=== PATIENT | female | born 1980 | race Caucasian/White ===

== ENCOUNTER 2019-04-04 03:56 | Emergency (ER) | payer BC, OTHER ==
[2019-04-04 04:04] VITALS: BP 127/77; PULSE 100; RESP 20; TEMP 98.6
--- NOTE | 2019-04-04 04:33 | ED ---
Abdominal Pain HPI - General Chief Complaint: Abdominal Pain Stated Complaint: constipation Time Seen by Provider: 04/04/19 04:32 Source: patient Mode of arrival: ambulatory Limitations: no limitations - History of Present Illness Initial Comments: Lizbeth is a pleasant 38-year-old female presents the emergency department today requesting an enema. Patient states that she ate too much dairy including cheese and became somewhat constipated. Patient states she then took some stool softeners and laxatives. Patient reports she is able to past watery stools but feels that there is a stool ball in her rectum. Patient states that she feels she needs an enema. Patient has not tried any manual disimpaction. She has not tried an enema at home. She states she didn't know enemas were available [id number] about she had to come the hospital for it. She reports she's been eating and drinking well, she has no other complaints, she has mild crampy abdominal pain prior to having bowel movements but is asymptomatic at this time. - Related Data Home Medications Medication Instructions Recorded Confirmed Glycerin/Propylene Glycol 1 drop LEFT EYE DAILY PRN 03/21/16 03/21/16 [Artificial Tears Drops] medroxyPROGESTERone [Depo-Provera] 150 mg IM Q90D 03/21/16 03/21/16 Previous Rx's Medication Instructions Recorded Tobramycin 0.3% Ophth Soln [Tobrex 1 - 2 drop BOTH EYES QID 7 Days ml 03/21/16 0.3% Ophth Soln] Allergies Allergy/AdvReac Type Severity Reaction Status Date / Time No Known Allergies Allergy Verified 04/04/19 04:03 Review of Systems ROS Statement: Those systems with pertinent positive or pertinent negative responses have been documented in the HPI. ROS Other: All systems not noted in ROS Statement are negative. Past Medical History Past Medical History: No Reported History History of Any Multi-Drug Resistant Organisms: None Reported Past Surgical History: Section Past Psychological History: No Psychological Hx Reported Smoking Status: Current every day smoker Past Alcohol Use History: Occasional Past Drug Use History: None Reported General Exam - General Exam Comments Initial Comments: Physical Exam GENERAL: Patient is well-developed and well-nourished. Patient is nontoxic and well-hydrated and is in no distress. HENT: Normocephalic, Atraumatic. EYES: PERRL, EOMI PULMONARY: Unlabored respirations. CARDIOVASCULAR: RRR ABDOMEN: Soft and nontender with normal bowel sounds. SKIN: Skin is clear with no lesions or rashes and otherwise unremarkable. : Deferred NEUROLOGIC: Patient is alert and oriented x3. Moving all extremities spontaneously MUSCULOSKELETAL: Normal extremities with adequate strength and full range of motion. No lower extremity swelling or edema. No calf tenderness. PSYCHIATRIC: Normal psychiatric evaluation. Limitations: no limitations Course Vital Signs 04/04/19 04:00 Temperature 98.6 F Pulse Rate 100 Respiratory 20 Rate Blood Pressure 127/77 O2 Sat by Pulse 96 Oximetry Medical Decision Making - Medical Decision Making Patient was seen and evaluated history is obtained from the patient is a 38-year-old female who reports feeling like there is firm stool that she's been unable to pass and would like to try an enema. Patient has no physical or mental limitations that would prevent her from doing her own enema she was simply not aware that she can buy one at the store. Patient will be given a fleets enema which she would like to take him feel. Patient states she be more comfortable using the restroom home anyways. All questions pertaining care were answered return parameters were discussed patient was discharged home in stable condition Disposition Clinical Impression: Constipation Disposition: HOME SELF-CARE Condition: Stable Instructions (If sedation given, give patient instructions): Fleet Enema (ED) Is patient prescribed a controlled substance at d/c from ED?: No Referrals: Rachele Jones MD [Primary Care Provider] - 1-2 days
[2019-04-04] MEDS ORDERED: NA PHOS,M-B/NA PHOS,DI-BA 133 ML ENEMA RECTAL STA (04:44)
== END 2019-04-04 04:55 | disposition home or self-care (01) ==
LOC: EC 03:56
DX: K59.00 Constipation, unspecified (principal); F17.200 Nicotine dependence, unspecified, uncomplicated; Z79.899 Other long term (current) drug therapy
CPT/HCPCS: 99283

== ENCOUNTER 2019-08-08 10:13 | Emergency (ER) | payer BC, OTHER ==
--- NOTE | 2019-08-08 10:36 | ED ---
General Adult HPI - General Chief complaint: Back Pain/Injury Stated complaint: sciatica pain Time Seen by Provider: 08/08/19 10:21 Source: patient, RN notes reviewed, old records reviewed Mode of arrival: ambulatory Limitations: no limitations - History of Present Illness Initial comments: 39-year-old female patient presented to ED for chief complaint of left paralumbar back pain for the last 2-3 weeks. Patient reports that the pain initially started at work where she moves around. Patient reports that the pain is in her left paralumbar region radiating down her left lateral leg. Denies any red flag symptoms. Ambulatory without difficulty. Patient does report that she saw her primary care doctor for this complaint last week which is initiated on muscle relaxers and steroids. Denies any significant improvement of symptoms. Denies any other complaints at this time. Denies any chance of being due to Depo-Provera shot as well as not being sexually active. Systemic: Pt denies fatigue, fever/chills, rash. Pt denies weakness, night sweats, weight loss. Neuro: Pt denies headache, visual disturbances, syncope or pre-syncope. HEENT: Pt denies ocular discharge or irritation, otalgia, rhinorrhea, pharyngitis or notable lymphadenopathy. Cardiopulmonary: Pt denies chest pain, SOB, heart palpitations, dyspnea on exertion. Abdominal/GI: Pt denies abdominal pain, n/v/d. : Pt denies dysuria, burning w/ urination, frequency/urgency. Denies new onset urinary or bowel incontinence. MSK: Pt denies loss of strength or function in extremities. Neuro: Pt denies new onset weakness, paresthesias. - Related Data Home Medications Medication Instructions Recorded Confirmed Glycerin/Propylene Glycol 1 drop LEFT EYE DAILY PRN 03/21/16 03/21/16 [Artificial Tears Drops] medroxyPROGESTERone [Depo-Provera] 150 mg IM Q90D 03/21/16 03/21/16 Previous Rx's Medication Instructions Recorded Tobramycin 0.3% Ophth Soln [Tobrex 1 - 2 drop BOTH EYES QID 7 Days ml 03/21/16 0.3% Ophth Soln] Oseltamivir [Tamiflu] 75 mg PO Q12HR 5 Days cap 08/08/19 Allergies Allergy/AdvReac Type Severity Reaction Status Date / Time No Known Allergies Allergy Verified 08/08/19 10:18 Review of Systems ROS Statement: Those systems with pertinent positive or pertinent negative responses have been documented in the HPI. ROS Other: All systems not noted in ROS Statement are negative. Past Medical History Past Medical History: No Reported History History of Any Multi-Drug Resistant Organisms: None Reported Past Surgical History: Section Past Psychological History: No Psychological Hx Reported Smoking Status: Current every day smoker Past Alcohol Use History: Occasional Past Drug Use History: None Reported General Exam - General Exam Comments Initial Comments: Constitutional: NAD, AOX3, Pt has pleasant affect. HEENT: NC/AT, trachea midline, neck supple, no lymphadenopathy. Posterior pharynx non erythematous, without exudates. External ears appear normal, without discharge. Mucous membranes moist. Eyes PERRLA, EOM intact. There is no scleral icterus. No pallor noted. Cardiopulmonary: RRR, no murmurs, rubs or gallops, no JVD noted. Lungs CTAB in anterior and posterior rod. No peripheral edema. Abdominal exam: Abdomen soft and non-distended. Abdomen non-tender to palpation in all 4 quadrants. Bowel sounds active in LLQ. No hepatosplenomegaly. No ecchymosis Neuro: CN II-XII grossly intact. No nuchal rigidity. No raccon eyes, no ramirez sign, no hemotympanum. No cervical spinal tenderness. MSK: Left paralumbar region mildly tender to palpation. Heel to toe walking intact. Straight leg raise is negative. Ambulatory without difficulty. 5 strength psoas and quadriceps muscles. No posterior calf tenderness bilaterally, homans sign negative bilaterally. Posterior tibialis and radial pulse +2 bilaterally. Sensation intact in upper and lower extremities. Full active ROM in upper and lower extremities, 5/5 stregnth. Limitations: no limitations Course Vital Signs 08/08/19 08/08/19 08/08/19 10:16 10:18 11:18 Temperature 98.1 F 100.9 F H Pulse Rate 108 H 87 Respiratory 18 20 20 Rate Blood Pressure 97/65 123/83 O2 Sat by Pulse 98 99 Oximetry Medical Decision Making - Medical Decision Making 39-year-old female patient presented to ED for chief complaint of left paralumbar back pain for the last 2-3 weeks. Patient reports that the pain initially started at work where she moves around. Patient reports that the pain is in her left paralumbar region radiating down her left lateral leg. Denies any red flag symptoms. Ambulatory without difficulty. Patient does report that she saw her primary care doctor for this complaint last week which is initiated on muscle relaxers and steroids. Denies any significant improvement of symptoms. Denies any other complaints at this time. Denies any chance of being due to Depo-Provera shot as well as not being sexually active. Phy sical exam displayed: Left paralumbar region mildly tender to palpation. Heel to toe walking intact. Straight leg raise is negative. Ambulatory without difficulty. 5 strength psoas and quadriceps muscles. No posterior calf tenderness bilaterally, homans sign negative bilaterally. Posterior tibialis and radial pulse +2 bilaterally. Sensation intact in upper and lower extremities. Full active ROM in upper and lower extremities, 5/5 stregnth. Plain film lumbar spine displayed no acute osseous lesion. Patient 3 muscle skeletal strain. Upon repeat vital patient did have a mild fever. Patient reports that she has been having cough, congestion, fever for the last 2 days. This was not previously stated in the of systems. Investigations were ordered including chest x-ray and influenza. Patient is influenza B-positive. As similar onset of the last 40 years patient be initiated on Tamiflu. She'll follow up with primary care provider and orthopedic consult, will return to ER if condition worsens. Case discussed with Dr. Amaya. - Lab Data Lab Results 08/08/19 Range/Units 11:33 Influenza Type A RNA Not Detected (Not Detectd) Influenza Type B (PCR) Detected H (Not Detectd) Disposition Clinical Impression: Lumbar back sprain, Influenza Disposition: HOME SELF-CARE Condition: Stable Instructions (If sedation given, give patient instructions): Acute Low Back Pain (ED), Influenza in Children (ED) Additional Instructions: Follow-up with primary care provider and orthopedic consult tomorrow. Take Tamiflu as directed. Continue to use Tylenol and Motrin as needed for pain. Use muscle relaxers as needed for discomfort. Return to ER if condition worsens. Prescriptions: Oseltamivir [Tamiflu] 75 mg PO Q12HR 5 Days cap Is patient prescribed a controlled substance at d/c from ED?: No Referrals: Rachele Jones MD [Primary Care Provider] - 1-2 days Kesha Hackett DO [Doctor of Osteopathic Medicine] - 1-2 days
--- NOTE | 2019-08-08 11:04 | XR ---
EXAMINATION TYPE: XR lumbar spine 2 or 3V , 3 VIEWS DATE OF EXAM ORDERED: 08/08/2019 HISTORY: back pain. COMPARISON: Previous study dated 11/16/2014. FINDINGS: Vertebral body height and alignment are maintained. There is no spondylolysis or spondylol isthesis. There is spaces are reasonably well-maintained. The pedicles are intact. IMPRESSION: NO ACUTE OSSEOUS LESION.
[2019-08-08 11:17] VITALS: RESP 20
[2019-08-08 11:18] VITALS: TEMP 100.9
--- NOTE | 2019-08-08 11:51 | XR ---
EXAMINATION TYPE: XR chest 2V DATE OF EXAM: 08/08/2019 HISTORY: cough. REFERENCE: Previous study dated 03/10/2015. FINDINGS: The lungs remain clear. Pleural space are clear. The heart is not enlarged. IMPRESSION: NORMAL CHEST.
[2019-08-08] MEDS ORDERED: OSELTAMIVIR 75 MG CAP PO STA (12:30)
[2019-08-08] MEDS ORDERED: ACETAMINOPHEN TAB 325 MG TAB PO STA (12:33)
[2019-08-08 12:45] VITALS: BP 125/79; PULSE 88
== END 2019-08-08 12:48 | disposition home or self-care (01) ==
LOC: EC 10:13
DX: S33.5XXA Sprain of ligaments of lumbar spine, initial encounter (principal); J10.1 Influenza due to other identified influenza virus with other respiratory manifestations; F17.200 Nicotine dependence, unspecified, uncomplicated; Z79.3 Long term (current) use of hormonal contraceptives
CPT/HCPCS: 71046; 72100; 87502; 99284

== ENCOUNTER → 2022-07-22 | Outpatient (CLI) | payer OTHER ==
--- NOTE | 2022-07-23 06:08 | XR ---
EXAMINATION TYPE: XR spine complete AP and Lat DATE OF EXAM: 07/22/2022 COMPARISON: Lumbar spine x-ray August 08, 2019. Thoracic spine x-ray November 16, 2014 HISTORY: Neck and back pain. TECHNIQUE: 2 views of the entire spine along with swimmer's view cervicothoracic junction and open-mo uth view cervical spine are acquired. FINDINGS: Cervical spine shows straightened alignment. Vertebral body heights and disc space heights are maintained. No suspicious prevertebral soft tissue swelling. C1-C2 articulation satisfactory on t he open-mouth frontal view. Thoracic spine shows [id number] multilevel anterior spurring with interval progression from 201 5 study. There is focal disc space narrowing with endplate sclerosis at roughly T9-T10 level. Vertebr al body heights are maintained. Alignment is satisfactory. There are 5 lumbar type vertebra are redemonstrated. There is dextroconvex scoliosis centered at L4 l evel which is more prominent from prior. There is mild to moderate disc space narrowing and anterior spurring at L2-L3 level now seen. There is mild disc space narrowing L5-S1 level. Vertebral body heig hts are maintained. Overlying soft tissue is unremarkable. IMPRESSION: As above.
== END | disposition home or self-care (01) ==
LOC: RADXRMAIN 17:20
PROVIDERS: ATTEND Nurse Practitioner Family
DX: M41.86 Other forms of scoliosis, lumbar region (principal); M51.84 Other intervertebral disc disorders, thoracic region; M51.86 Other intervertebral disc disorders, lumbar region; M54.2 Cervicalgia
CPT/HCPCS: 72082